=== PATIENT | male | born 1975 | race Caucasian/White ===

== ENCOUNTER 2020-06-22 10:45 | Emergency (ER) | payer MEDICAID ==
[~2020-06-22] VITALS: Ht 170.2 cm; Wt 68.0 kg
[2020-06-22 10:47] VITALS: BP 127/60
[2020-06-22] MEDS ORDERED: KEPP500 MT (10:53)
[2020-06-22] MEDS ORDERED: LEVETIRACETAM 500MG TABLET PO ONE (11:00)
== END 2020-06-22 11:25 | disposition home or self-care (01) ==
LOC: ER 10:45
DX: Z76.0 Encounter for issue of repeat prescription (principal); G40.909 Epilepsy, unspecified, not intractable, without status epilepticus; Z88.0 Allergy status to penicillin
CPT/HCPCS: 99283